=== PATIENT | male | born 1950 ===

== ENCOUNTER 2022-12-15 15:02 | Inpatient (IN) | payer OTHER ==
[~2022-12-15] VITALS: Ht 165.1 cm; Wt 74.8 kg
[2022-12-16] MEDS ORDERED: SYNTHROID112 MCG PO (12:17)
[2022-12-25] MEDS ORDERED: LEVSIN/SL0.125 MG SL (09:46)
[2022-12-25] MEDS ORDERED: PERCOCET 5-3251 EACH PO (09:46)
[2022-12-25] MEDS ORDERED: PEPCID AC20 MG PO (09:46)
[2022-12-25] MEDS ORDERED: INTESTINEX680 M1 PO (09:47)
== END 2022-12-25 13:10 | disposition home or self-care (01) | DRG 331 ==
LOC: SURH 12-23 10:15 → O/R 12-23 11:00 → SURH 12-23 11:00
PROVIDERS: ADMIT Surgery; ATTEND Surgery
PROC: 07BB4ZZ Excision of Mesenteric Lymphatic, Percutaneous Endoscopic Approach (ICD-10-PCS; 2022-12-23)
PROC: 3E0F7SF Introduction of Other Gas into Respiratory Tract, Via Natural or Artificial Opening (ICD-10-PCS; 2022-12-23)
PROC: 0DTG4ZZ Resection of Left Large Intestine, Percutaneous Endoscopic Approach (ICD-10-PCS; principal; 2022-12-23 18:30)
DX: C18.6 Malignant neoplasm of descending colon (principal); R59.0 Localized enlarged lymph nodes; K57.30 Diverticulosis of large intestine without perforation or abscess without bleeding; R19.4 Change in bowel habit